=== PATIENT | male | born 1970 | race Caucasian/White ===

== ENCOUNTER 2017-11-11 08:38 | Emergency (ER) | payer OTHER ==
[~2017-11-11] VITALS: Ht 180.3 cm; Wt 82.1 kg
[2017-11-11 08:58] VITALS: BP 144/88
--- NOTE | 2017-11-11 09:00 | NUR ---
PT AMBULATED TO BED 3.
--- NOTE | 2017-11-11 09:00 | NUR ---
Maxine perales in [facility] - 11/11/17 at 0916 by MED PT TAKEN TO BED 1.
--- NOTE | 2017-11-11 09:05 | NUR ---
PATIENT PRESENTS TO ED WITH C/O LEFT ANKLE PAIN SINCE THURSDAY;HX OF ALCOHOL OVERDOSE . PT STATES HE WAS WALKING WHEN HE SPRAINED HIS ANKLE;LT ANKLE IS SWOLLEN;NO HEMATOMA NOTED; DENIES N/V/D; SKIN IS PINK/WARM/DRY; AAOX4; LUNGS CLEAR BL; HR EVEN AND REGULAR; PT DENIES ANY FEVER, CP, SOB, OR COUGH AT THIS TIME; PATIENT STATES PAIN OF 10/10 AT THIS TIME;PATIENT POSITIONED FOR COMFORT; HOB ELEVATED; BEDRAILS UP X2; BED DOWN. ER MD MADE AWARE OF PT STATUS.
[2017-11-11] MEDS ORDERED: ACETAMINOPHEN EXTRA STRENGTH 500 MG TAB PO ONE (09:20)
--- NOTE | 2017-11-11 09:27 | NUR ---
XRAY AT BEDSIDE.
[2017-11-11 10:38] VITALS: BP 135/74
== END 2017-11-11 10:38 | disposition home or self-care (01) ==
LOC: MED 08:38
DX: S82.452A Displaced comminuted fracture of shaft of left fibula, initial encounter for closed fracture (principal); F17.210 Nicotine dependence, cigarettes, uncomplicated; R03.0 Elevated blood-pressure reading, without diagnosis of hypertension; X58.XXXA Exposure to other specified factors, initial encounter; Y93.89 Activity, other specified; Y92.89 Other specified places as the place of occurrence of the external cause; Y99.8 Other external cause status
CPT/HCPCS: 29515; 73610; 99284; Q0092

== ENCOUNTER 2020-08-26 18:13 | Emergency (ER) | payer OTHER ==
[~2020-08-26] VITALS: Ht 172.7 cm; Wt 99.8 kg
[2020-08-26 18:46] VITALS: BP 158/81
--- NOTE | 2020-08-26 18:51 | NUR ---
PATIENT PRESENTS TO ED WITH LEFT KNEE PAIN AND LEFT HAND PAIN LIKELY R/T GOUT FLARE UP . PT DENIES INJURY, NO DEFORMITIES NOTED AT THIS TIME . SKIN IS INTACT. DENIES N/V/D; SKIN IS PINK/WARM/DRY; AAOX4 WITH EVEN AND STEADY GAIT; LUNGS CLEAR BL; HR EVEN AND REGULAR; PT DENIES ANY FEVER, CP, SOB, OR COUGH AT THIS TIME; PATIENT STATES PAIN OF 10/10 AT THIS TIME; VSS; PATIENT POSITIONED FOR COMFORT; HOB ELEVATED; BEDRAILS UP X2; BED DOWN. ER MD MADE AWARE OF PT STATUS.
--- NOTE | 2020-08-26 19:13 | NUR ---
RECEIVED REPORT FROM DEANDRE GIBBONS. TRANSFER OF CARE AT THIS TIME.
--- NOTE | 2020-08-26 19:30 | NUR ---
ERMD AT BEDSIDE
[2020-08-26] MEDS ORDERED: methylPREDNISolone SS 125 MG in WATER STERILE 2 ML IM ONE (20:10)
[2020-08-26] MEDS ORDERED: KETOROLAC 30 MG/ML VIAL IM ONE (20:10)
[2020-08-26] MEDS ORDERED: methylPREDNISolone SS 125 MG/2 ML VIAL ONE (20:31)
[2020-08-26] MEDS ORDERED: WATER STERILE 10 ML MC ONE (20:31)
[2020-08-26 20:48] VITALS: BP 145/80
--- NOTE | 2020-08-26 20:48 | NUR ---
Patient discharged with v/s stable. Written and verbal after care instructions given and explained. Patient alert, oriented and verbalized understanding of instructions. Ambulatory with steady gait. All questions addressed prior to discharge. ID band removed. Patient advised to follow up with PMD. Rx of INDOMETHACIN, PREDNISONE given. Patient educated on indication of medication including possible reaction and side effects. Opportunity to ask questions provided and answered.
== END 2020-08-26 20:48 | disposition home or self-care (01) ==
LOC: MED 18:13
DX: M10.062 Idiopathic gout, left knee (principal)
CPT/HCPCS: 96372; 99284; J1885; J2930